=== PATIENT | male | born 1955 | race Caucasian/White ===

== ENCOUNTER 2018-03-25 05:37 | Inpatient (IN) ==
[2018-03-25] MEDS ORDERED: Protamine Sulfate Inj 50 MG/5 ML Vial ONE (06:05)
[2018-03-25] MEDS ORDERED: ceFAZolin 1 GM Premix Inj 2 GM/100 ML PIGGYBACK IV.SIG ONE (06:05)
[2018-03-25] MEDS ORDERED: Heparin 10,000 UNITS/10 ML Vial (for IV use) ONE (06:05)
[2018-03-25] MEDS ORDERED: Thrombin Topical 20,000 UNIT Spray Kit TOPICAL ONE (06:06)
[2018-03-25] MEDS ORDERED: Heparin/NS PF Inj 500 ML ONE (06:06)
[2018-03-25] MEDS ORDERED: Metoprolol Tartrate 25 MG Tablet PO ONE (06:07)
[2018-03-25] MEDS ORDERED: Chlorhexidine Gluconate 2% 1 Pack (2 Cloths) TOPICAL ONE (06:07)
[2018-03-25] MEDS ORDERED: Sodium Chlor 0.9% Inj 500 ML IV.SIG ONE (06:15)
[2018-03-25] MEDS ORDERED: Bupivacaine PF 0.5% Inj 10 ML Vial ONE (06:52)
--- NOTE | 2018-03-25 07:42 | P.HPVS ---
History of Present Illness Chief Complaint: R LE rest pain, PAD History of Present Illness: 62 man with R LE claudication and near rest pain, s/p failed SFA stents. Presents for distal bypass. No interval changes that would preclude OR. - Inpatient Certification If this patient has been admitted as an Inpatient: I certify that the inpatient services were ordered in accordance with Medicare regulations governing the order. This includes certification that hospital inpatient services are reasonable and necessary and in the case of services not specified as inpatient-only under 42 CFR 419.22(n), that they are appropriately provided as inpatient services in accordance to with the 2-midnight benchmark under 43 CFR 412.3(e) Estimated Total Length of Stay (Days): 4 Plans for Post Hospital Care: Home Review of Systems All other systems reviewed negative except as stated in HPI [facility] - History History Provided By: Patient - Medical History Medical History: Medical History (Last Reviewed 03/25/18 @ 07:41 by Marty Blair MD) AAA (abdominal aortic aneurysm) Anxiety Atrial fibrillation by electrocardiogram Dyspnea HLD (hyperlipidemia) HTN (hypertension) Hx of assisted use of blood thinners Hx of malignant melanoma of skin Intermittent claudication PAD (peripheral artery disease) Paroxysmal A-fib Skin cancer Type II diabetes mellitus - Surgical History Surgical History: Surgical History (Last Reviewed 03/25/18 @ 07:41 by Marty Blair MD) History of intravascular stent placement - Tobacco History Second Hand Smoke Exposure: No Tobacco Use In Past 30 Days: No Smoking Status: Former smoker - Alcohol History How Often Do You Have a Drink Containing Alcohol: 2 to 3 times a week - Substance Use History Substance History: No History of Abuse - Travel History Recent Travel in the [place] Within the Last 8 Weeks: No Recent Travel Out of the Country Within the Last 8 Weeks: No Medications and Allergies Active Medications: Active Medications Lactated Ringer's (Lr 1000 Ml Inj) 1,000 mls @ 30 mls/hr IV.SIG .Q24H TORO Stop: 03/26/18 06:14 Last Admin: 03/25/18 06:35 Dose: 30 mls/hr Sodium Chloride (Ns Inj) 500 mls @ 30 mls/hr IV.SIG .[id number] ONE Stop: 03/25/18 22:54 Last Admin: 03/25/18 06:54 Dose: Not Given Allergies Allergy/AdvReac Type Severity Reaction Status Date / Time Iodinated Contrast- Oral and Allergy Severe Swelling, Verified 03/25/18 06:32 IV Dye RASH, SKIN [Contrast] PEELING iodine Allergy Severe RASH Verified 03/25/18 06:32 potassium iodide Allergy Severe RASH Verified 03/25/18 06:32 povidone-iodine Allergy Severe RASH Verified 03/25/18 06:32 sodium iodide Allergy Severe RASH Verified 03/25/18 06:32 sodium iodide Allergy Severe RASH Verified 03/25/18 06:32 diatrizoate meglumine Allergy Intermediate Swelling Verified 03/25/18 06:32 gadobenic acid Allergy Intermediate Swelling Verified 03/25/18 06:32 gadodiamide Allergy Intermediate Swelling Verified 03/25/18 06:32 gadoteridol Allergy Intermediate Swelling Verified 03/25/18 06:32 iodixanol Allergy Intermediate Swelling Verified 03/25/18 06:32 iohexol Allergy Intermediate Swelling Verified 03/25/18 06:32 Home Medications Medication Instructions Recorded Confirmed Type amlodipine 10 mg PO DAILY 01/29/18 03/25/18 History apixaban [Eliquis] 5 mg PO BID 01/29/18 03/25/18 History aspirin 81 mg PO DAILY 01/29/18 03/25/18 History atorvastatin 40 mg PO DAILY 01/29/18 03/25/18 History carvedilol 25 mg PO BID 01/29/18 03/25/18 History cilostazol 50 mg PO BID 01/29/18 03/25/18 History glipizide 5 mg PO BID 01/29/18 03/25/18 History hydrochlorothiazide 25 mg PO DAILY 01/29/18 03/25/18 History pantoprazole 40 mg PO DAILY 01/29/18 03/25/18 History sildenafil 40 mg PO BID PRN 01/29/18 03/25/18 History tamsulosin [Flomax] 0.4 mg PO DAILY 01/29/18 03/25/18 History fenofibrate nanocrystallized 145 mg PO DAILY 03/21/18 03/25/18 History Physical Exam Vital Signs / I&O: Vital Signs 03/25/18 06:39 Temperature 97.9 F Pulse Rate 88 Respiratory Rate 20 Blood Pressure 163/93 H Pulse Oximetry 100 Intake & Output 03/24/18 03/25/18 03/25/18 18:59 06:59 18:59 Weight 99.7 kg Other: Weight On Admission 99.7 kg Neuro: alert, no distress HEENT: NC/AT Neck: no JVD Heart: reg rate, no M Lungs: clear B Abdomen: NT Vascular: nonpalpable R LE pulses (DAQUAN 0.48) Laboratory Results - last 24 hr 03/25/18 06:35 Blood Type A Positive Caprini VTE Risk Assessment Caprini VTE Risk Assessment: No/Low Risk (score <= 1) Caprini Risk Assessment Model: Point Value = 1 Point Value = 2 Point Value = 3 Point Value = 5 Age 41-60 Minor surgery BMI > 25 kg/m2 Swollen legs Varicose veins or History of unexplained or recurrent spontaneous Oral contraceptives or hormone replacement Sepsis (< 1 month) Serious lung disease, including pneumonia (< 1 month) Abnormal pulmonary function Acute myocardial infarction Congestive heart failure (< 1 month) History of inflammatory bowel disease Medical patient at bed rest Age 61-74 Arthroscopic surgery Major open surgery (> 45 min) Laparoscopic surgery (> 45 min) Malignancy Confined to bed (> 72 hours) Immobilizing plaster cast Central venous access Age >= 75 History of VTE Family history of VTE Factor V Leiden Prothrombin [id number] Lupus anticoagulant Anticardiolipin antibodies Elevated serum homocysteine Heparin-induced thrombocytopenia Other congenital or acquired thrombophilia Stroke (< 1 month) Elective arthroplasty Hip, pelvis, or leg fracture Acute spinal cord injury (< 1 month) Prophylaxis Regimen: Total Risk Factor Score Risk Level Prophylaxis Regimen 0-1 Low Early ambulation 2 Moderate Order ONE of the following: *Sequential Compression Device (SCD) *Heparin 5000 units SQ BID 3-4 Higher Order ONE of the following medications: *Heparin 5000 units SQ TID *Enoxaparin/Lovenox 40 mg SQ daily (WT < 150 kg, CrCl > 30 mL/min) *Enoxaparin/Lovenox 30 mg SQ daily (WT < 150 kg, CrCl > 10-29 mL/min) *Enoxaparin/Lovenox 30 mg SQ BID (WT < 150 kg, CrCl > 30 mL/min) AND/OR *Sequential Compression Device (SCD) 5 or more Highest Order ONE of the following medications: *Heparin 5000 units SQ TID (Preferred with Epidurals) *Enoxaparin/Lovenox 40 mg SQ daily (WT < 150 kg, CrCl > 30 mL/min) *Enoxaparin/Lovenox 30 mg SQ daily (WT < 150 kg, CrCl > 10-29 mL/min) *Enoxaparin/Lovenox 30 mg SQ BID (WT < 150 kg, CrCl > 30 mL/min) AND *Sequential Compression Device (SCD) Assessment and Plan - Plan R LE bypass, possible iliac stent OR today : [phone]
[2018-03-25] MEDS ORDERED: Famotidine 20 MG Tablet ONE (07:47)
[2018-03-25] MEDS ORDERED: MethylPREDNISolone Sod Succinate Inj 125 MG/2 ML Vial ONE (07:47)
[2018-03-25] MEDS ORDERED: Famotidine PF Inj 20 MG/2 ML Vial ONE (07:54)
[2018-03-25] MEDS ORDERED: Bisacodyl 10 MG Supp RECTAL PRN (09:35)
--- NOTE | 2018-03-25 09:35 | P.OP ---
- Preoperative Diagnosis (1) PAD (peripheral artery disease) - Postoperative Diagnosis (1) Venous aneurysm (2) PAD (peripheral artery disease) Date of procedure: 03/25/18 Procedure: 1. R groin arterial exploration 2. Direct repair of venous aneurysm Implants: none Anesthesia: GETA Surgeon: Marty Blair MD Estimated blood loss (mL): 50 IV fluids (mL): 1,400 Urine output (mL): 300 Pathology: none sent Operation and Findings: intensely calcified EIA and [employer]IST, unable to occlude with surgical clamps procedure aborted. Will try endo techniques in 2-3 weeks incidentally found venous pseudoaneurysm on medial side of CFV, directly repaired
[2018-03-25] MEDS ORDERED: Dextrose 50% in Water 50 ML Vial IV.PUSH PRN (09:39)
[2018-03-25] MEDS ORDERED: fentaNYL Citrate Inj 100 MCG/2 ML Ampul ONE (10:09)
[2018-03-25] MEDS ORDERED: *morphine SULFATE 10 MG/ML PERIprocedure ONLY ONE ×2 (10:40→11:34)
[2018-03-25] MEDS: Insulin NovoLIN Regular Correctional Sugar Inj SQ SCH ×3 (12:08→20:53)
[2018-03-25] MEDS ORDERED: Metoprolol Inj 5 MG/5 ML Vial ONE (14:47)
[2018-03-25] MEDS ORDERED: Metoprolol Inj 5 MG/5 ML Vial IV.PUSH ONE (15:00)
--- NOTE | 2018-03-25 16:11 | MP ---
cc: Marty Blair MD DATE OF OPERATION: PREOPERATIVE DIAGNOSIS: Peripheral arterial disease and right lower extremity claudication. POSTOPERATIVE DIAGNOSES: 1. Peripheral arterial disease and right lower extremity claudication. 2. Left common femoral vein pseudoaneurysm. PROCEDURE: 1. Right groin exploration without arterial repair. 2. Direct repair of venous pseudoaneurysm. ATTENDING SURGEON: Marty Blair MD ANESTHESIA: General. INDICATIONS: Mr. De León is a 59-year-old gentleman with right lower extremity claudication. He has diminished ABIs in the 0.4 range and failed endovascular stenting of his SFA in the past. He was taken to the operating room for surgical revascularization. Intraoperatively, it was found he had an incidental pseudoaneurysm of the common femoral vein that was directly repaired. Additionally, he had such intense calcific disease that even despite clamping the common femoral artery, the artery was not able to be occluded with any degree of safety and the procedure was aborted given he has only claudication. DESCRIPTION OF PROCEDURE: Informed consent was obtained. The patient was taken to the operating room and placed supine on the operating table. An appropriate timeout was taken to ensure the patient's identity, operative site and planned procedure. The administration of 2 grams of Ancef was initiated prior to skin incision and will be discontinued after a single preoperative dose. Everyone in the room agreed with the timeout and we proceeded. He was prepped from his nipples to his toes. A vertical incision made in the patient's right groin and carried down through subcutaneous tissue with electrocautery. Dense scar tissue was encountered from previous catheterization. The common femoral artery, distal external iliac artery, profunda and SFA were all dissected free. The SFA had stents in it and was noted to be occluded. On the medial aspect of the femoral vein, a pseudoaneurysm was encountered. This had a very thin film over what appeared to be about a 3 mm x 4 mm hole in the vein. This was imbricated with 5-0 Prolene suture without difficulty. Hemostasis was achieved. I then dissected free up to the external iliac artery. There was no area that was sufficiently clampable in the mid common femoral artery. There was one area which was possibly clampable and with the placement of a bend of adult profunda clamp with upwards of 7-8 clicks on the clamp, we were unable to occlude the artery. Given the patient has claudication, the procedure was aborted. The wound was made hemostatic, irrigated, infiltrated with Marcaine and closed with 2-0 Polysorb and 4-0 Monocryl in 2 layers. The sponge and needle counts were correct at the end of the case. I was present, scrubbed, and performed the entire procedure. MD YOKASTA Chamorro/marisol , 03:41 PM , 03:49 PM
[2018-03-25] MEDS ORDERED: Sod Chloride 0.9% Inj 1,000 ML IV.SIG ONE (18:00)
[2018-03-25] MEDS: Carvedilol 12.5 MG Tablet PO SCH (20:52)
[2018-03-25] MEDS: Senna/Docusate Sodium 8.6/50 MG Tablet PO SCH (20:52)
[2018-03-25] MEDS: glipiZIDE 5 MG Tablet PO SCH (23:11)
[2018-03-25] MEDS: Cilostazol 50 MG Tablet PO SCH (23:11)
[2018-03-26] MEDS: Insulin NovoLIN Regular Correctional Sugar Inj SQ SCH ×4 (04:00→18:20)
[2018-03-26 04:58] LABS: Mean Corpuscular HGB Conc 34.2 % (32.0-36.0); Mean Corpuscular Hemoglobin 31.4 pg (27.0-34.0); Mean Corpuscular Volume 91.9 fL (80.0-100.0); Mean Platelet Volume 9.5 fL (7.0-11.0); Platelet Count 127 th/mm3 (150-450); Red Blood Count 4.79 mil/mm3 (4.50-5.90); Red Cell Distribution Width 15.2 % (11.6-17.2); White Blood Count 10.1 th/mm3 (4.0-11.0)
[2018-03-26 05:26] LABS: Calcium 8.6 mg/dL (8.5-10.1); Carbon Dioxide 28.4 meq/L (21.0-32.0); Potassium 3.7 meq/L (3.5-5.1)
--- NOTE | 2018-03-26 08:22 | P.CONCA ---
History of Present Illness Primary Care Provider: Jaz Huynh MD History of Present Illness: 62-year-old male with A. fib on Eliquis, HTN, HLD, PAD, DM. The patient was admitted on 03/25/18 for attempted right lower extremity distal bypass due to claudication with Dr. Blair. Due to calcified arteries, the procedure was unable to be completed with tentative plans for peripheral intervention in the future. After this procedure the patient was noted to be in rapid atrial fibrillation, asymptomatic. He was given IV metoprolol with improvement heart rate. Telemetry noted to be A. fib with heart rate controlled overnight, currently around 90. Review of Systems All other systems reviewed negative except as stated in HPI [facility] - History History Provided By: Patient, Medical Record - Medical History Medical History: Medical History (Last Reviewed 03/25/18 @ 07:41 by Marty Blair MD) AAA (abdominal aortic aneurysm) Anxiety Atrial fibrillation by electrocardiogram Dyspnea HLD (hyperlipidemia) HTN (hypertension) Hx of residential use of blood thinners Hx of malignant melanoma of skin Intermittent claudication PAD (peripheral artery disease) Paroxysmal A-fib Skin cancer Type II diabetes mellitus - Surgical History Surgical History: Surgical History (Last Reviewed 03/25/18 @ 07:41 by Marty Blair MD) History of intravascular stent placement - Tobacco History Second Hand Smoke Exposure: No Tobacco Use In Past 30 Days: No Smoking Status: Former smoker - Alcohol History How Often Do You Have a Drink Containing Alcohol: 2 to 3 times a week - Substance Use History Substance History: No History of Abuse - Travel History Recent Travel in the [place] Within the Last 8 Weeks: No Recent Travel Out of the Country Within the Last 8 Weeks: No Medications and Allergies Active Medications: Active Medications Al Hydroxide/Mg Hydroxide (Milk Of Nessa Granger) 30 ml PO Q12H PRN PRN Reason: Mild Constipation Amlodipine Besylate (Norvasc) 10 mg PO DAILY TORO Apixaban (Eliquis) 5 mg PO BID TORO Atorvastatin Calcium (Lipitor) 40 mg PO DAILY TORO Bisacodyl (Dulcolax Supp) 10 mg RECTAL DAILY PRN PRN Reason: SEVERE CONSITIPATION Carvedilol (Coreg) 25 mg PO BID [facility] Last Admin: 03/25/18 20:52 Dose: 25 mg Cilostazol (Pletal) 50 mg PO BID [facility] Last Admin: 03/25/18 23:11 Dose: 50 mg Dextrose (D50w Vial) 50 ml IV.PUSH UNSCH PRN PRN Reason: PER HYPOGLYCEMIA PROTOCOL Diltiazem HCl (Cardizem Cd 24hr) 240 mg PO DAILY [facility] Enoxaparin Sodium (Lovenox Inj) 40 mg SQ Q24H [facility] Stop: 03/26/18 09:01 Fenofibrate (Tricor) 145 mg PO DAILY [facility] Glipizide (Glucotrol) 5 mg PO BID [facility] Last Admin: 03/25/18 23:11 Dose: 5 mg Glucagon (Glucagon Inj) 1 mg OTHER PRN PRN PRN Reason: for Hypoglycemia Protocol Hydrochlorothiazide (Hydrodiuril) 25 mg PO DAILY [facility] Hydromorphone HCl (Dilaudid) 2 mg PO Q4H PRN PRN Reason: PAIN SCALE 6 TO 10 Last Admin: 03/26/18 04:41 Dose: 2 mg Insulin Human Regular (Novolin R Correctional Sugar Inj) 0 units SQ ACHS AND 3AM TORO; Protocol Last Admin: 03/26/18 04:00 Dose: Not Given Lactulose (Lactulose Liq) 30 ml PO DAILY PRN PRN Reason: SEVERE CONSITIPATION Miscellaneous Information (Misc Nursing Information) 1 each OTHER UNSCH PRN PRN Reason: SEE LABEL COMMENTS Stop: 03/26/18 09:58 Oxycodone HCl (Roxicodone) 5 mg PO Q4H PRN PRN Reason: PAIN SCALE 1 TO 5 Last Admin: 03/25/18 18:44 Dose: 5 mg Pantoprazole Sodium (Protonix) 40 mg PO DAILY [facility] Senna/Docusate Sodium (Nikki-Colace) 1 tab PO BID [facility] Last Admin: 03/25/18 20:52 Dose: 1 tab Sennosides (Senokot) 17.2 mg PO Q12H PRN PRN Reason: Moderate Constipation Tamsulosin HCl (Flomax) 0.4 mg PO DAILY [facility] Allergies Allergy/AdvReac Type Severity Reaction Status Date / Time Iodinated Contrast- Oral and Allergy Severe Swelling, Verified 03/25/18 06:32 IV Dye RASH, SKIN [Contrast] PEELING iodine Allergy Severe RASH Verified 03/25/18 06:32 potassium iodide Allergy Severe RASH Verified 03/25/18 06:32 povidone-iodine Allergy Severe RASH Verified 03/25/18 06:32 sodium iodide Allergy Severe RASH Verified 03/25/18 06:32 sodium iodide Allergy Severe RASH Verified 03/25/18 06:32 diatrizoate meglumine Allergy Intermediate Swelling Verified 03/25/18 06:32 gadobenic acid Allergy Intermediate Swelling Verified 03/25/18 06:32 gadodiamide Allergy Intermediate Swelling Verified 03/25/18 06:32 gadoteridol Allergy Intermediate Swelling Verified 03/25/18 06:32 iodixanol Allergy Intermediate Swelling Verified 03/25/18 06:32 iohexol Allergy Intermediate Swelling Verified 03/25/18 06:32 Home Medications Medication Instructions Recorded Confirmed Type amlodipine 10 mg PO DAILY 01/29/18 03/25/18 History apixaban [Eliquis] 5 mg PO BID 01/29/18 03/25/18 History aspirin 81 mg PO DAILY 01/29/18 03/25/18 History atorvastatin 40 mg PO DAILY 01/29/18 03/25/18 History carvedilol 25 mg PO BID 01/29/18 03/25/18 History cilostazol 50 mg PO BID 01/29/18 03/25/18 History glipizide 5 mg PO BID 01/29/18 03/25/18 History hydrochlorothiazide 25 mg PO DAILY 01/29/18 03/25/18 History pantoprazole 40 mg PO DAILY 01/29/18 03/25/18 History sildenafil 40 mg PO BID PRN 01/29/18 03/25/18 History tamsulosin [Flomax] 0.4 mg PO DAILY 01/29/18 03/25/18 History fenofibrate nanocrystallized 145 mg PO DAILY 03/21/18 03/25/18 History Exam Vital signs: Vital Signs 03/25/18 09:55 03/25/18 10:00 03/25/18 10:15 Temperature 98.0 F Pulse Rate 102 H 86 80 Respiratory Rate 18 15 14 Blood Pressure 157/93 H 150/87 H 162/87 H Pulse Oximetry 95 95 95 03/25/18 10:30 03/25/18 10:45 03/25/18 10:52 Temperature Pulse Rate 82 86 Respiratory Rate 14 15 14 Blood Pressure 153/92 H 145/77 H Pulse Oximetry 96 94 L 03/25/18 11:00 03/25/18 12:00 03/25/18 12:26 Temperature 98.5 F Pulse Rate 85 95 H Respiratory Rate 15 13 16 Blood Pressure 161/77 H 147/75 H Pulse Oximetry 95 97 03/25/18 13:02 03/25/18 14:00 03/25/18 15:00 Temperature 98.5 F Pulse Rate 89 98 H 109 H Respiratory Rate 11 L 18 14 Blood Pressure 135/76 146/81 H 141/67 H Pulse Oximetry 95 96 96 03/25/18 15:48 03/25/18 16:00 03/25/18 17:00 Temperature 98.2 F Pulse Rate 118 H 118 H 123 H Respiratory Rate 20 Blood Pressure 148/95 H Pulse Oximetry 97 03/25/18 18:00 03/25/18 19:00 03/25/18 20:00 Temperature 99.0 F Pulse Rate 114 H 130 H 126 H Respiratory Rate 22 Blood Pressure 139/80 Pulse Oximetry 96 03/25/18 21:00 03/25/18 22:00 03/25/18 23:00 Temperature Pulse Rate 124 H 104 H 100 H Respiratory Rate Blood Pressure Pulse Oximetry 03/26/18 00:00 03/26/18 01:00 03/26/18 02:00 Temperature 99.0 F Pulse Rate 94 H 98 H 86 Respiratory Rate 20 Blood Pressure 148/75 H Pulse Oximetry 96 03/26/18 03:00 03/26/18 04:00 03/26/18 05:00 Temperature 97.8 F Pulse Rate 81 80 84 Respiratory Rate 20 Blood Pressure 169/81 H Pulse Oximetry 96 03/26/18 06:00 Temperature Pulse Rate 82 Respiratory Rate Blood Pressure Pulse Oximetry Intake & Output 03/25/18 03/26/18 03/26/18 18:59 06:59 18:59 Intake Total 3760 / 3760 1720 / 1720 Output Total 400 / 400 500 / 500 Balance 3360 / 3360 1220 / 1220 Weight 224 lb 13.944 oz Intake: IV 1000 / 1000 NS Inj 1,000 ML @ Wide Open IV. 1000 / 1000 SIG BOLUS ONE Rx#:[id number] Oral 960 / 960 720 / 720 Anesthesia Amount 2800 / 2800 Output: Urine 500 / 500 Estimated Blood Loss 100 / 100 Urine Amount (Catheter) 300 / 300 Indwelling Temp Sensing 300 / 300 Catheter Other: Mode Setting Right Groin Continuous # Voids 0 Date of Last Bowel Movement 03/25/18 # Bowel Movements 0 Narrative: GENERAL: Well-developed well-nourished. In no acute distress. NECK: No carotid bruits. No JVD. CARDIOVASCULAR: Irregular rate and rhythm. No murmur appreciated. RESPIRATORY: No accessory muscle use. Clear to auscultation. Breath sounds equal bilaterally. MUSCULOSKELETAL: No clubbing or cyanosis. No edema. Faintly palpable pulses right foot. NEUROLOGICAL: Awake and alert. Normal speech. Results 03/26/18 04:28 03/26/18 04:28 CBC 03/26/18 Range/Units 04:28 WBC 10.1 (4.0-11.0) th/mm3 RBC 4.79 (4.50-5.90) mil/mm3 Hgb 15.0 (13.0-17.0) gm/dL Hct 44.0 (39.0-51.0) % Plt Count 127 L (150-450) th/mm3 Comprehensive Metabolic Panel 03/26/18 Range/Units 04:28 Sodium 141 (136-145) meq/L Potassium 3.7 (3.5-5.1) meq/L Chloride 106 (98-107) meq/L Carbon Dioxide 28.4 (21.0-32.0) meq/L BUN 16 (7-18) mg/dL Creatinine 1.24 (0.60-1.30) mg/dL Calcium 8.6 (8.5-10.1) mg/dL Intake and Output 03/25/18 03/26/18 03/26/18 22:59 06:59 14:59 Intake Total 3360 / 3360 720 / 720 Output Total 50 / 50 500 / 500 Balance 3310 / 3310 220 / 220 Intake: IV 1000 / 1000 NS Inj 1,000 ML @ Wide Open IV. 1000 / 1000 SIG BOLUS ONE Rx#:[id number] Oral 960 / 960 720 / 720 Anesthesia Amount 1400 / 1400 Output: Urine 500 / 500 Estimated Blood Loss 50 / 50 Other: Mode Setting Right Groin Continuous # Voids 0 Date of Last Bowel Movement 03/25/18 # Bowel Movements 0 Weight 224 lb 13.944 oz Assessment and Plan - Plan 62-year-old male with A. fib on Eliquis, HTN, HLD, PAD, DM Atrial fibrillation: RVR yesterday resolved with IV metoprolol. Change amlodipine to diltiazem for improved rate control, continue carvedilol. Continue Eliquis for anticoagulation. Outpatient follow-up. PAD: Agree with peripheral intervention as needed with Dr. Blair. Discussed Condition With: Patient with RN at bedside, Dr. Paz
[2018-03-26] MEDS ORDERED: amLODIPine 10 MG Tablet PO SCH (09:00)
[2018-03-26] MEDS ORDERED: Enoxaparin Inj 40 MG/0.4 ML Syringe SQ SCH (09:00)
[2018-03-26] MEDS: Senna/Docusate Sodium 8.6/50 MG Tablet PO SCH ×2 (09:44→21:49)
[2018-03-26] MEDS: Fenofibrate 145 MG Tablet PO SCH (09:44)
[2018-03-26] MEDS: glipiZIDE 5 MG Tablet PO SCH ×2 (09:44→21:49)
[2018-03-26] MEDS: Carvedilol 12.5 MG Tablet PO SCH ×2 (09:44→21:49)
[2018-03-26] MEDS: Cilostazol 50 MG Tablet PO SCH ×2 (09:44→21:49)
[2018-03-26] MEDS: hydroCHLOROthiazide 25 MG Tablet PO SCH (09:44)
[2018-03-26] MEDS: dilTIAZem CD 240 MG Capsule PO SCH (09:51)
--- NOTE | 2018-03-26 10:07 | P.PNVS ---
Subjective Post Op Day #: 1 Procedure: R groin arterial exploration Subjective/Hospital Course: 62/M with a Hx of R LE claudication (R LE stents) Pt s/p R groin arterial exploration w/ incidental finding of a venous pseudoaneurysm on medial side of CFV that was directly repaired Post procedure pt had an episode of asymptomatic A -Fib w/ RVR - Cardiology consulted and following Pt denied any CP/SOB/Weakness/Heart Palpitations Controlled A fib on CM - HR 80 Pt ambulating w/o complaints Pt c/o Right thigh paresthesias Prevena wound vac to R groin intact w/o hematoma or swelling Objective Vital Signs / I&O: Vital Signs 03/25/18 09:55 03/25/18 10:00 03/25/18 10:15 Temperature 98.0 F Pulse Rate 102 H 86 80 Respiratory Rate 18 15 14 Blood Pressure 157/93 H 150/87 H 162/87 H Pulse Oximetry 95 95 95 03/25/18 10:30 03/25/18 10:45 03/25/18 10:52 Temperature Pulse Rate 82 86 Respiratory Rate 14 15 14 Blood Pressure 153/92 H 145/77 H Pulse Oximetry 96 94 L 03/25/18 11:00 03/25/18 12:00 03/25/18 12:26 Temperature 98.5 F Pulse Rate 85 95 H Respiratory Rate 15 13 16 Blood Pressure 161/77 H 147/75 H Pulse Oximetry 95 97 03/25/18 13:02 03/25/18 14:00 03/25/18 15:00 Temperature 98.5 F Pulse Rate 89 98 H 109 H Respiratory Rate 11 L 18 14 Blood Pressure 135/76 146/81 H 141/67 H Pulse Oximetry 95 96 96 03/25/18 15:48 03/25/18 16:00 03/25/18 17:00 Temperature 98.2 F Pulse Rate 118 H 118 H 123 H Respiratory Rate 20 Blood Pressure 148/95 H Pulse Oximetry 97 03/25/18 18:00 03/25/18 19:00 03/25/18 20:00 Temperature 99.0 F Pulse Rate 114 H 130 H 126 H Respiratory Rate 22 Blood Pressure 139/80 Pulse Oximetry 96 03/25/18 21:00 03/25/18 22:00 03/25/18 23:00 Temperature Pulse Rate 124 H 104 H 100 H Respiratory Rate Blood Pressure Pulse Oximetry 03/26/18 00:00 03/26/18 01:00 03/26/18 02:00 Temperature 99.0 F Pulse Rate 94 H 98 H 86 Respiratory Rate 20 Blood Pressure 148/75 H Pulse Oximetry 96 03/26/18 03:00 03/26/18 04:00 03/26/18 05:00 Temperature 97.8 F Pulse Rate 81 80 84 Respiratory Rate 20 Blood Pressure 169/81 H Pulse Oximetry 96 03/26/18 06:00 Temperature Pulse Rate 82 Respiratory Rate Blood Pressure Pulse Oximetry Intake & Output 03/25/18 03/26/18 03/26/18 18:59 06:59 18:59 Intake Total 3760 / 3760 1720 / 1720 Output Total 400 / 400 500 / 500 Balance 3360 / 3360 1220 / 1220 Weight 102 kg Intake: IV 1000 / 1000 NS Inj 1,000 ML @ Wide Open IV. 1000 / 1000 SIG BOLUS ONE Rx#:[id number] Oral 960 / 960 720 / 720 Anesthesia Amount 2800 / 2800 Output: Urine 500 / 500 Estimated Blood Loss 100 / 100 Urine Amount (Catheter) 300 / 300 Indwelling Temp Sensing 300 / 300 Catheter Other: Mode Setting Right Groin Continuous # Voids 0 Date of Last Bowel Movement 03/25/18 # Bowel Movements 0 Exam: GENERAL: NAD/A&OX3/Speech clear SKIN: B LE Warm and dry w/ motor intact Prevena wound vac to R groin w/o hematoma or swelling NECK: Supple, trachea midline. No JVD or lymphadenopathy. CARDIOVASCULAR: Regular rate and rhythm without murmurs, gallops, or rubs. RESPIRATORY: Breath sounds equal bilaterally. No accessory muscle use. GASTROINTESTINAL: Abdomen soft, non-tender, nondistended. MUSCULOSKELETAL: No cyanosis, or edema. Right DP/PT biphasic signals heard via doppler Laboratory Results - last 24 hr 03/25/18 03/25/18 03/25/18 12:04 16:37 20:38 WBC RBC Hgb Hct MCV MCH MCHC RDW Plt Count MPV Sodium Potassium Chloride Carbon Dioxide Anion Gap BUN Creatinine Estimated GFR POC Glucose 205 H 221 H 213 H Random Glucose Calcium 03/26/18 03/26/18 03/26/18 04:28 04:28 04:37 WBC 10.1 RBC 4.79 Hgb 15.0 Hct 44.0 MCV 91.9 MCH 31.4 MCHC 34.2 RDW 15.2 Plt Count 127 L MPV 9.5 Sodium 141 Potassium 3.7 Chloride 106 Carbon Dioxide 28.4 Anion Gap 7 BUN 16 Creatinine 1.24 Estimated GFR 59 L POC Glucose 135 H Random Glucose 136 H Calcium 8.6 03/26/18 08:09 WBC RBC Hgb Hct MCV MCH MCHC RDW Plt Count MPV Sodium Potassium Chloride Carbon Dioxide Anion Gap BUN Creatinine Estimated GFR POC Glucose 132 H Random Glucose Calcium Assessment and Plan - Plan 62/M with a Hx of R LE claudication (R LE stents) Pt s/p R groin arterial exploration w/ incidental finding of a venous pseudoaneurysm on medial side of CFV that was directly repaired Post procedure pt had an episode of asymptomatic A -Fib w/ RVR - Cardiology consulted and following No recent or over night episodes of rapid A Fib Plan OOB/Ab alisia Pain control Continue neurovascular checks Continue to monitor HR D/C planning for tomorrow am Lucille Goins NP [facility]/[employer] [phone] : [phone] Discharge Planning: Tomorrow am
[2018-03-27] MEDS: Insulin NovoLIN Regular Correctional Sugar Inj SQ SCH (07:59)
[2018-03-27 08:15] VITALS: BP 159/78; RESP 20; TEMP 97.4; O2SAT 97
--- NOTE | 2018-03-27 08:49 | P.DS ---
Discharge Summary - Admission Date 03/25/18 05:37 - Admission Diagnosis (1) PAD (peripheral artery disease) - Discharge Date 03/27/18 - Discharge Diagnosis (1) PAD (peripheral artery disease) Status: Acute (2) Venous aneurysm Status: Acute - Summary Brief History from admission: 62 man with R LE claudication and near rest pain, s/p failed SFA stents. Presents for distal bypass. No interval changes that would preclude OR. Procedure: R groin arterial exploration Significant Findings: GENERAL: NAD/A&OX3/Speech clear SKIN: B LE Warm and dry w/ motor intact Prevena wound vac to R groin w/o hematoma or swelling NECK: Supple, trachea midline. No JVD or lymphadenopathy. CARDIOVASCULAR: Regular rate and rhythm without murmurs, gallops, or rubs. RESPIRATORY: Breath sounds equal bilaterally. No accessory muscle use. GASTROINTESTINAL: Abdomen soft, non-tender, nondistended. MUSCULOSKELETAL: No cyanosis, or edema. Right DP/PT biphasic signals heard via doppler Abnormal Lab Results 03/26/18 03/26/18 03/26/18 11:39 17:52 21:53 POC Glucose 159 H 189 H 143 H 03/27/18 07:28 POC Glucose 123 H Hospital Course: Mr. De León is a 62 man with a hx of R LE claudication and near rest pain and failed SFA stents. 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 Planning for endo techniques in 2-3 weeks POD 1 Post procedure pt had an episode of asymptomatic A -Fib w/ RVR - Cardiology consulted and following Pt denied any CP/SOB/Weakness/Heart Palpitations Controlled A fib on CM - HR 80 Pt ambulating w/o complaints Pt c/o Right thigh paresthesias Prevena wound vac to R groin intact w/o hematoma or swelling POD 2 Pt doing well with c/o mild right thigh paresthesias Pt w/o complaints and denied CP/SOB/Weakness Pt continues w/o any recent or over night episodes of rapid A Fib Pain controlled Pt clear for d/c with R groin prevena wound vac Will remove wound vac on POD 7 in our [facility]PC D/C instructions reviewed with patient E- Forcse reviewed - No recent activity- Rx 3D pain medication for out pt pain control - Discharge Instructions Any questions or concerns: Call [facility] [phone] Discharge Plan - Discharge Disposition Patient Disposition: 01 Discharge Home - Discharge Condition Condition: Good - Discharge Order Discharge Orders: Discharge Order (Routine); Ordered 03/27/18 Ordered By: Lucille Goins - Physicians Team Primary Care Provider: Jaz Huynh Attending Provider: Marty Blair Other Providers: August Stephens DO - Rxs /Orders / Referrals /Forms Prescriptions: New oxycodone-acetaminophen [Percocet] 5-325 mg Tablet 1 tab PO Q4-6H PRN (Reason: pain) Qty: 20 RF: 0 Continue amlodipine 10 mg Tablet 10 mg PO DAILY apixaban [Eliquis] 5 mg Tablet 5 mg PO BID aspirin 81 mg Tablet,Delayed Release (Dr/Ec) 81 mg PO DAILY atorvastatin 40 mg Tablet 40 mg PO DAILY carvedilol 25 mg Tablet 25 mg PO BID cilostazol 50 mg Tablet 50 mg PO BID fenofibrate nanocrystallized 145 mg Tablet 145 mg PO DAILY glipizide 5 mg Tablet 5 mg PO BID hydrochlorothiazide 25 mg Tablet 25 mg PO DAILY pantoprazole 40 mg Tablet,Delayed Release (Dr/Ec) 40 mg PO DAILY sildenafil 25 mg Tablet 40 mg PO BID PRN (Reason: Erectile Dysfunction) tamsulosin [Flomax] 0.4 mg Capsule 0.4 mg PO DAILY Referrals: Jaz Huynh MD [Primary Care Provider] - See Instructions Marty Blair MD [Physician] - See Instructions (Follow up on Sunday04/01/18 at 11:30 in our out patient clinic for your RIGHT groin wound vac removal ) - Discharge Instructions Patient Printed Instructions: Peripheral Vascular Disease (GEN), Angiogram (GEN ) - Post Discharge Care Plan Care Plan Goals: Discharge Care Plan Goals After Vascular Surgery Contact: Please call [phone] if you have any problems or have questions regarding your hospitalization. Directions to Meet Your Goals: 1. Diet: * You may resume a regular diet as you were eating at home before your admission. 2. Activity: * Increase your activity level gradually. * Keep surgical extremities elevated when at rest. This will help limit the swelling, bruising and discomfort normally present after surgery. * Walking is a good form of light exercise. Go for a walk at least 3 times per day. * No heavy lifting (lifting over 10 pounds) for at least 4 weeks from surgery. * Check with your surgeon to ensure when you are cleared for heavy lifting and full-intensity exercising. * Your strength will gradually improve. * No driving or operating motorized vehicles while on prescription pain medications. * No swimming until wounds fully healed. * Return to work when cleared by MD/KIMANI/WILI. 3. Bathing: Shower daily. * Gently let soap and water run over your incision and pat dry. Do not scrub the incision/wound. * Don't soak in a bath or submerge your incision in water until your incision is healed and evaluated by your physician at follow-up (usually two weeks). 4. Wound Care: INCISION SITE CARE INSTRUCTIONS: * You may leave your incision open to air. * Keep your incision clean and dry, unless showering. See above. * Moisture near the incision will cause the wound to open. * No lotions, creams, ointments, or powders on incisions until they are well- healed. * If you have glue over the incision(s), allow it to fall off naturally in 1-3 weeks * If present, екатерина/sutures will be removed 2-3 weeks after surgery during your follow-up clinic visit. * If present, change dressing/bandage when soaked/soiled as needed. * Observe wound daily, checking for signs and symptoms of infection including: foul odor, drainage from the incision, increased redness, increased pain at incision, or increased swelling. 5. Pain Control: Expect post-operative pain for 1-4 weeks after surgery. Your pain will improve gradually. * You may have been provided with a prescription for pain medication. Please take as directed, and be aware of side effects such as drowsiness, constipation and mild stomach discomfort. Pain pills on an empty stomach can cause nausea , so eat a small amount of food, such as crackers, when taking these pills. * Take [id number] stool softeners (Colace or Senna) with your prescribed pain medication. * Acetaminophen (500mg every 6 hours) or Ibuprofen (400mg every 6 hours) may be used in conjunction with narcotics to relieve pain. DO NOT take more than 4 grams (4000mg) of Tylenol in one day, as this can harm your liver. DO NOT take ibuprofen IF: you have an allergy to non-steroidal anti-inflammatory medications, you are taking Coumadin, you have been told you have kidney problems, or you have a history of gastrointestinal bleeding or ulcers. DO NOT take more than 3.2 grams (3200mg) of ibuprofen in one day. * You may also find relief from using heat packs or pads or ice packs. 6. Bowel Regimen for Constipation: * People who undergo surgery are likely to develop post-operative constipation. Exposure to narcotics and changes in diet, fluid intake, and physical activity are known contributors to constipation. We recommend routine stool softeners and/ or laxatives after surgery for most patients. Start by taking one medication. You can increase as directed to relieve constipation. Stop taking these medications if you develop diarrhea. These medications are available over-the- counter and do not require a prescription: * Colace is a stool softener. We recommend starting at 100mg orally twice per day as needed for soft stools and increase to a maximum of 200mg twice daily as needed. * Senna is a laxative that works by keeping water in the intestine to help stool move along the intestinal tract. Take 1 tablet daily as needed for soft stool and increase to a maximum of 2 tablets twice daily as needed. Take Senna with two full glasses of water each time. * Miralax, Dulcolax and Milk of Magnesia are other [id number]-[id number] laxatives that may be used as needed for post-operative constipation. * Drink 6-8 glasses of water per day. * Consume 15-30g of fiber per day: * Metamucil powder, 1-2 tablespoons 1-2 times/day OR Benefiber powder, 2 tablespoons 4 times/day. * Avoid straining. 7. Follow-Up: Do Not miss your follow-up appointment. Keep up with all your appointments and yearly check ups If you have any of the following symptoms please call [phone] immediately: Excessive swelling of the affected extremity Sudden onset of severe or unusual pain in the affected extremity Pain that gets worse or is not relieved by medication Warmth, redness, or swelling in the skin around the wound Foul drainage from incision Extensive bruising or discoloration Wound that opens up or pulls apart Fever above 101.5F or shaking chills Nausea or vomiting Severe diarrhea or severe constipation Dizziness or fainting Chest pain, shortness of breath, or increased work of breathing Weight gain >10 lbs over 3-4 days Inability to urinate for more than 6 hours Cloudy or foul smelling urine Urge to urinate more often than usual Symptoms to Report to Your Doctor: Temperature 101F or higher Pain uncontrolled by medication Drainage or foul odor from incision Extensive bruising or discoloration Chest pain Shortness of breath Nausea, vomiting or dizziness Call 911: Call 911 right away if you have: Sudden onset of chest pain that is not relieved by medications Shortness of breath
[2018-03-27] MEDS: Cilostazol 50 MG Tablet PO SCH (10:01)
[2018-03-27] MEDS: dilTIAZem CD 240 MG Capsule PO SCH (10:02)
[2018-03-27] MEDS: Senna/Docusate Sodium 8.6/50 MG Tablet PO SCH (10:02)
[2018-03-27] MEDS: Fenofibrate 145 MG Tablet PO SCH (10:03)
[2018-03-27] MEDS: Carvedilol 12.5 MG Tablet PO SCH (10:03)
[2018-03-27] MEDS: glipiZIDE 5 MG Tablet PO SCH (10:03)
[2018-03-27] MEDS: hydroCHLOROthiazide 25 MG Tablet PO SCH (10:04)
[2018-03-27 10:48] VITALS: PULSE 84
== END 2018-03-27 11:00 | disposition home or self-care (01) | DRG 254 ==
LOC: HSDI 05:37 → HCPC 16:04
PROVIDERS: ADMIT Surgery; ATTEND Surgery
CPT/HCPCS: 80048; 82948; 82962; 85027; 86850; 86900; 86901; J0131; J0690; J1200; J1644; J1650; J2250; J2270; J2720; J2930; J3010; J3370; J7030; J7120; Q4145